=== PATIENT | female | born 1945 | race Caucasian/White ===

== ENCOUNTER → 2016-12-30 | Outpatient (CLI) | payer MEDICARE ==
[~2016-12-30] MED LIST: ACYC-1 PO; CALTTAB2 PO; CURAMIN PO; CYCL-36 PO; ERGO50000 PO; HYDR-3129 PO; LEVO112T2 PO; PROT40TA PO
[2016-12-30 13:32] LABS: BLOOD GAS BASE EXCESS 0.8 mmol/L (-2-2); BLOOD GAS CARBOXYHEMOGLOBIN 1.2 % (0-4); BLOOD GAS HCO3 24 mmol/L (22-26); BLOOD GAS O2 HGB SATURATION 95 % (90-100); BLOOD GAS OXYGEN CONTENT 16.5 Vol % (12.0-20.0); BLOOD GAS PCO2 36 mmHg (38-42); BLOOD GAS PO2 91 mmHg (61-120); BLOOD GAS TOTAL HGB 12.3 G/DL (12.0-16.0); CRITICAL VALUE NO; DRAW SITE RT RADIAL; FIO2 21 %; NUMBER OF ARTERIAL PUNCTURES 1; STAT NO; TEMP CORR TO 98.6; ULNAR PULSE PRESENT
--- NOTE | 2017-01-06 09:20 | RSPPFT ---
DATE OF PROCEDURE: 12/30/16 COMMENTS: Spirometry with FVC of 2.3 predicted 2.7, FEV1 of 1.8 predicted 1.9, FEV1/FVC ratio 78% predicted 71%. Lung volumes are essentially within the predicted range. DLCO is 76% of predicted. 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
== END ==
LOC: HRSP 13:04
PROVIDERS: ATTEND Internal Medicine Pulmonary Disease
DX: R06.02 Shortness of breath (principal)
CPT/HCPCS: 36600; 82805; 94060; 94620; 94726; 94729

== ENCOUNTER 2017-02-26 21:24 | Emergency (ER) | payer MEDICARE ==
[~2017-02-26] VITALS: Ht 160 cm; Wt 66.0 kg
[2017-02-26 21:27] VITALS: BP 152/71; PULSE 83; RESP 16; TEMP 97.9; O2SAT 96
[2017-02-26] MEDS ORDERED: CALC1TAB87 PO (21:49)
[2017-02-26] MEDS ORDERED: LEVO112T2 PO (21:49)
[2017-02-26] MEDS ORDERED: ACYC400T PO (21:49)
[2017-02-26] MEDS ORDERED: HYDR-3583 PO (21:49)
[2017-02-26] MEDS ORDERED: MONT10TA2 PO (21:49)
[2017-02-26] MEDS ORDERED: CHOL1CAP34 PO (21:49)
[2017-02-26] MEDS ORDERED: PANT40TA3 PO (21:49)
[2017-02-26] MEDS ORDERED: VENTAER INH (21:49)
[2017-02-26] MEDS ORDERED: CURCPOW PO (21:49)
[2017-02-26] MEDS ORDERED: TETANUS/DIPHTHERIA TOXOID ADULT 0.5 ML VIAL IM ONE (22:15)
[2017-02-26] MEDS ORDERED: AMOXICILLIN/CLAVULANATE K 875 MG TAB PO ONE (22:15)
--- NOTE | 2017-02-26 22:17 | PD ---
HPI Chief Complaint: Bite or Sting Time Seen by Provider: 22:02 Travel History International Travel<30 days: No Contact w/Intl Traveler<30days: No Traveled to known affect area: No History of Present Illness HPI 72-year-old female presents to the emergency room for evaluation of a dog bite to her right dorsal hand that occurred earlier today. Patient was breaking up a fight between her dog and her daughter's dog when 1 of the 2 dogs bit her hand. Patient reports moderate pain over the bites. She is concerned because every time she moves her hand the wound begins to bleed. She is not on blood thinners. She is also concerned because the largest wound is over the joint. Last tetanus was about 5 years ago. Both dogs are up-to-date on rabies vaccinations. PFSH Past Medical History Arthritis: Yes Cancer: No Cardiovascular Problems: No Endocrine: Yes GERD: Yes Genitourinary: No Headaches: Yes Immune Disorder: No Musculoskeletal: Yes (Chronic back pain ) Neurologic: Yes Psychiatric: No Reproductive: No Respiratory: No Thyroid Disease: Yes (HYPO) Tetanus Vaccination: < 5 Years Influenza Vaccination: No Tubal Ligation: Yes Past Surgical History Body Medical Devices: BREASTS Gynecologic Surgery: Yes (TUBAL LIG.) Neurologic Surgery: Yes (LUMBAR LAMINECTOMY) Oral Surgery: Yes (T & A) Social History Alcohol Use: No Tobacco Use: No Substance Use: No Allergies-Medications (Allergen,Severity, Reaction): Coded Allergies: Erythromycin (Unverified Allergy, Severe, RASH, 02/26/17) Robaxin (Unverified Allergy, Severe, ITCH, 02/26/17) Talwin (Unverified Allergy, Severe, ITCH, 02/26/17) Reported Meds & Prescriptions Reported Meds & Active Scripts Active Reported Curcumin (Turmeric (Curcuma Longa) (Bulk) 1 Pow Pow 2 Cap PO BID Calcium 600 with Vitamin D (Calcium Carbonate-Cholecalciferol) 600-400 mg-Unit Tab 3 Tab PO DAILY Singulair (Montelukast Sodium) 10 Mg Tab 10 Mg PO HS Acyclovir 400 Mg Tab 400 Mg PO TID PRN Vitamin D3 (Cholecalciferol) 50,000 Unit Cap 50,000 Units PO Q7D Hydrocodone-Acetaminophen 10-325 mg Tab 1 Tab PO Q6H PRN Pantoprazole (Pantoprazole Sodium) 40 Mg Tab 40 Mg PO DAILY Levothyroxine (Levothyroxine Sodium) 112 Mcg Tab 112 Mcg PO DAILY Ventolin Hfa 18 GM Inh (Albuterol Sulfate) 90 Mcg/Act Aer 2 Puff INH Q6H PRN Review of Systems Except as stated in HPI: all other systems reviewed are Neg Physical Exam Narrative GENERAL: Well-nourished, well-developed female in no acute distress. Afebrile. Ambulatory. SKIN: Focused skin assessment warm/dry. There is a 1 cm well-approximated superficial wound over the third dorsal MCP joint. There are 2 superficial abrasions adjacent to the large wound. No lymphangitis. No purulent drainage. HEAD: Normocephalic. EYES: No scleral icterus. No injection or drainage. NECK: Supple, trachea midline. No JVD or lymphadenopathy. CARDIOVASCULAR: Regular rate and rhythm without murmurs, gallops, or rubs. RESPIRATORY: Breath sounds equal bilaterally. No accessory muscle use. MUSCULOSKELETAL: No cyanosis. Moderate edema over the right dorsal hand especially over the third MCP joint. Less than 2 second capillary refill distally. Full range of motion with pain. Data Data Last Documented VS Vital Signs Date Time Temp Pulse Resp B/P Pulse Ox O2 Delivery O2 Flow Rate FiO2 02/26/17 21:27 97.9 83 16 152/71 96 Orders Amoxicil-Clavulanate (Augmentin) (02/26/17 22:15) Tetanus/Diphtheria Tox Adult (Tetanus/Di (02/26/17 22:15) MDM Medical Decision Making Medical Screen Exam Complete: Yes Emergency Medical Condition: Yes Medical Record Reviewed: Yes Differential Diagnosis Dog bite, wound infection, lymphangitis Narrative Course 72-year-old female presents to the emergency room for evaluation of dog bite to the right hand that occurred earlier today. Patient was either bit by her dog or her daughter's dog, both of which are up-to-date on rabies shots. She will be updated on tetanus today and given a first dose of Augmentin. There is a 1 cm well approximated superficial laceration over the dorsal third MCP with surrounding edema. There are 2 adjacent superficial abrasions. No lymphangitis or surrounding erythema. No purulent drainage. Less than 2 second capillary refill distally. No indication for imaging at this time. Wound was thoroughly irrigated and then approximated with Steri-Strips. Patient was informed sutures are contraindicated at this time. Patient will be discharged with Augmentin and told to follow-up with a primary care physician or return for worsening symptoms. She understands and agrees to plan. Diagnosis Primary Impression: Dog bite of right hand without complication Qualified Code: S61.451A - Dog bite of right hand without complication, initial encounter Referrals: Primary Care Physician Patient Instructions: Animal Bite (ED), General Instructions Additional Instructions: Rest and drink plenty of fluids. Take Augmentin as directed, until gone. Take Tylenol as directed, as needed for pain. Apply ice to the affected area for 20 minutes at a time, as needed for pain and swelling. Follow-up with a primary care physician. Return to the emergency room for worsening symptoms. Med/Other Pt SpecificInfo: Prescription(s) given Disposition: 01 DISCHARGE HOME Condition: Stable Laureen Alvarado Feb 26, 2017 22:17
[2017-02-26] MEDS ORDERED: AUGM875T3 PO (22:19)
== END 2017-02-26 22:34 | disposition home or self-care (01) ==
LOC: PHEFT 21:24
DX: S61.451A Open bite of right hand, initial encounter (principal); W54.0XXA Bitten by dog, initial encounter; Z23 Encounter for immunization
CPT/HCPCS: 90471; 90714

== ENCOUNTER → 2017-04-03 | Outpatient (CLI) | payer MEDICARE ==
[~2017-04-03] MED LIST changes: -ACYC-1 PO; +ACYC400T PO; +AUGM875T3 PO; +CALC1TAB87 PO; -CALTTAB2 PO; +CHOL1CAP34 PO; -CURAMIN PO; +CURCPOW PO; -CYCL-36 PO; -ERGO50000 PO; -HYDR-3129 PO; +HYDR-3583 PO; +MONT10TA2 PO; +PANT40TA3 PO; -PROT40TA PO; +VENTAER INH
--- NOTE | 2017-04-16 08:43 | RSPPFT ---
DATE OF PROCEDURE: 04/03/17 COMMENTS: Spirometry with FVC of 2.2 predicted 2.7, FEV1 of 1.8 predicted 1.9, FEV1/FVC ratio 81% predicted 71%. Lung volumes show a decrease with TLC at 3.4 predicted 4.5. DLCO is 76% of predicted. IMPRESSION: On the basis of the above, patient has a mild restrictive lung defect with no responsiveness to acutely inhaled bronchodilator.
== END ==
LOC: HRSP 12:02
PROVIDERS: ATTEND Internal Medicine Pulmonary Disease
DX: R06.02 Shortness of breath (principal)
CPT/HCPCS: 94060; 94620; 94726; 94729

== ENCOUNTER → 2017-11-11 | Outpatient (CLI) | payer MEDICARE | LOC: HRSP 13:12 | PROVIDERS: ATTEND Internal Medicine Pulmonary Disease | DX: J84.10 Pulmonary fibrosis, unspecified (principal) | CPT/HCPCS: 94060; 94618; 94726; 94729 ==